=== PATIENT | male | born 1950 | race Caucasian/White ===

== ENCOUNTER 2025-02-19 07:13 | Day surgery (SDC) | payer OTHER, SELFPAY ==
--- OUTSIDE RECORDS SUMMARY | 2025-01-10 09:26 | XMS_ITS | Encounter Summary ---
Author Name [facility] [place] [facility] [place] Address [address] [place] [address] Care Team Providers Care Bowling Alley Operator Name Role Phone CM HECTOR Primary Care Provide r Unavailable Insurance Providers: All historical and current Section Date Range: From patient's date of to the date document was created. This section includes the names of all active insurance providers for the patient. Insurance Provider Type of Coverage Plan Name Start of Policy Coverage End of Policy Coverage Group Number Member ID Insurance Provider's Telephone Number Policy Lozano's Name Patient's Relationship to Policy Lozano [employer] [facility] (R) MEDICARE ADVANTAGE [facility] ([facility]) Jul 31, 2021 [id number] [phone] TONYSanta KING PATIENT CAREMARK PRESCRIPT ION [id number] Jul 31, 2023 [id number] [facility] [phone] TONY,Olimpia BAINSETTE SPOUSE CAREMARK PRESCRIPT ION GEHA Jul 31, 2023 [id number] [phone] Olimpia JIMENEZ NNETTE SPOUSE CAREMARK PRESCRIPT ION GEHA Jul 31, 2017 [id number] Olimpia JIMENEZETTE SPOUSE CAREMARK PRESCRIPT ION GEHA Jun 30, 2017 [id number] Olimpia JIMENEZ NNETTE SPOUSE CAREMARK PRESCRIPT ION GEHA STAND MINOR PLAN Jul 31, 2012 [id number] TONY,A NNETTE SPOUSE CAREMARK PRESCRIPT ION GEHA Jul 31, 2012 [id number] Tony,A nnette SPOUSE GEHA (SECONDARY ) PREFERRED PROVIDER ORGANIZAT ION (PPO) RAFIA AL EMPLO DUNHAM Jul 31, 2017 [id number] [phone] TONY,A NNETTE SPOUSE GEHA FEHB PREFERRED PROVIDER ORGANIZAT ION (PPO) Rafia al Emplo dunham Hea Jul 31, 2017 [id number] TONY,A NNETTE SPOUSE GEHA FEHB PREFERRED PROVIDER ORGANIZAT ION (PPO) RAFIA AL GOV Jul 31, 2012 [id number] [phone] TONY,A NNETTE SPOUSE GEHA FEHB PREFERRED PROVIDER ORGANIZAT ION (PPO) GEHA CONNE CTION DENT Jul 31, 2012 [id number] TONY,A NNETTE SPOUSE GEHA-BE[facility]AV I[facility]AL HE[facility] MENTAL HEALTH FEHB/ PSHB Jul 31, 2024 [id number] [phone] TONY,A NNETTE SPOUSE GEHA-BEHAV I[facility] HE[facility] MENTAL HEALTH GEHA Jul 31, 2023 [id number] TONY,A NNETTE SPOUSE GEHA-BEHAV I[facility]AL HE[facility] MENTAL HEALTH STAND MINOR OPTIO N Jul 31, 2023 [id number] TONY,A NNETTE SPOUSE GEHA-[facility] PREFERRED PROVIDER ORGANIZAT ION (PPO) FEHB/ PSHB Jul 31, 2024 [id number] [phone] TONY,A NNETTE SPOUSE GEHA-[facility] PREFERRED PROVIDER ORGANIZAT ION (PPO) RAFIA AL EMPLO DUNHAM HEA Jul 31, 2023 [id number] [facility] [phone] TONY,A NNETTE SPOUSE GEHA-[facility] PREFERRED PROVIDER ORGANIZAT ION (PPO) RAFIA AL EMPLO DUNHAM HEA Jul 31, 2023 [id number] [phone] TONY,Olimpia MATHEWS SPOUSE [facility] PREFERRED PROVIDER ORGANIZAT ION (PPO) PAPO GAXIOLA OPTIO N Jul 31, 2023 [id number] TONY,Olimpia MATHEWS SPOUSE MEDICARE (WNR) MEDICARE () PART A Jun 30, 2012 PART A [id number] Santa JIMENEZ PATIENT MEDICARE (WNR) MEDICARE () PART B Jun 30, 2012 PART B [id number] [phone] Santa JIMENEZ PATIENT MEDICARE (WNR) MEDICARE () PART A Jun 30, 2012 PART A [id number] Santa JIMENEZ PATIENT MEDICARE (WNR) MEDICARE () PART B Jun 30, 2012 PART B [id number] Santa JIMENEZ PATIENT MEDICARE (WNR) MEDICARE () PART A Jun 30, 2012 PART A [id number] Santa JIMENEZ PATIENT MEDICARE (WNR) MEDICARE (M) PART B Jun 30, 2012 PART B [id number] [id number] Santa JIMENEZ PATIENT MEDICARE (WNR) MEDICARE () PART A Jun 30, 2012 PART A [id number] Santa JIMENEZ PATIENT MEDICARE (WNR) MEDICARE () PART B Jun 30, 2012 PART B [id number] Santa JIMENEZ PATIENT Selected Encounter This section includes the information on record at [place] for the Encounter. Date/Time Encounter Type Encounter Description Reason Provider Source Jul 09, 2024 02:30 PM OFFICE O/P EST MOD 30 MIN PRIMARY CARE/MEDICINE ICD-10-CM E11.9 Type 2 diabetes mellitus without complications CM [place] Encounter Template Text not used by [place] Assessments - Encounter Diagnoses This section includes the primary and secondary diagnoses documented for the Encounter. Date/Time Primary/Secondary Diagnosis Diagnosis Name Provider Source Jul 22, 2024 01:32 PM PRIMARY Type 2 diabetes mellitus without complications YAZMINBOB LAKISHACM Schmidt [facility] Jul 22, 2024 01:32 PM SECONDARY Benign prostatic hyperplasia without lower urinry tract symp YAZMINBOB LAKISHACM Schmidt [facility] Jul 22, 2024 01:32 PM SECONDARY Elevated prostate specific antigen [PSA] SYLEXIEGONZÁLEZ BANUELOSSHELLEYArelySUMAYAArelyLEBRON Schmidt [facility] Jul 22, 2024 01:32 PM SECONDARY Essential (primary) hypertension YAZMINDIANANitaMONICAGONZÁLEZ BANUELOSCM Schmidt [facility] Jul 22, 2024 01:32 PM SECONDARY Hyperlipidemia, unspecified SYMINANitaMONICAGONZÁLEZ BANUELOSCM Schmidt [facility] Jul 22, 2024 01:32 PM SECONDARY Mild cognitive impairment of uncertain or unknown etiology SYMINANitaMONICAGONZÁLEZ BANUELOSSHELLEYArelyJUANA Roxana [facility] Jul 22, 2024 01:32 PM SECONDARY Post-traumatic stress disorder, chronic JORDI BANUELOSSHELLEYArelySUMAYAArelyLEBRON Roxana [facility] Jul 22, 2024 01:32 PM SECONDARY Type 2 diabetes mellitus with diabetic neuropathy, unsp TSERINGMONICAGONZÁLEZ BANUELOSCM Schmidt [facility] Plan of Treatment: Future Appointments (+ 6 months) and Future Tests (+/- 45 days) The Plan of Treatment section includes future care activities for the patient [facility] [place] [facility] This section includes future appointments and future orders which are active, pending or scheduled. Future Appointments This section includes appointments that were scheduled to occur 6 months from the date of the Encounter, up to a maximum of 20 appointments. The data comes from all [place] treatment facilities. Appointment Date/Time Appointment Type Appointme nt Facility Name Aug 07, 2024 09:30 AM [facility] [place] [facility] Aug 08, 2024 11[facility]00 AM [facility] Aug 26, 2024 09:00 AM AMBULATORY - MEDICINE [facility] Sep 30, 2024 08:30 AM AM[place]UL[place]ICINE [place] [facility] [place] [facility] Nov 04, 2024 09:30 AM [facility] November 28, 2024 10:15 AM [facility] - NONE [facility] Dec 30, 2024 08:30 AM [facility] Active, Pending, and Scheduled Orders This section includes a listing of several types of active, pending, and scheduled orders, including clinic medications orders, diagnostic test orders, procedure orders and consult orders; where the start date of the order is 45 days before the date of the Encounter or 45 days after the date of theEncounter. The data comes from all [place] treatment facilities. Test Date/Time Test Type Test Details Facility Name Jul 13, 2024 10:00 PM Consult Order [facility]COLON[facility] SCREENING Cons Web Marketing Strategist's Choice [facility] Lab Results: +/- 30 days of the encounter This section includes the Chemistry and Hematology Lab Results on record with [place] for the patient. Radiology Reports and Pathology Reports are provided separately, in subsequent sections. Lab Results This section contains the Chemistry/Hematology Results that were resulted 30 days before or 30 daysafter the date of the Encounter. Date/Time Source Result Type Result - Unit Interpretation Reference Range Specimen Type Comment Jun 25, 2024 08:58 AM [facility] MICROALBUMIN CREATININE RATIO PANEL URINE Specimen Type: URINE No comment entered. Ordering Provider: CM STEWART Report Released Date/Time: November 30, 2023 12:27 PM Reporting Lab: [address] [address] Performing Lab: [address] [address] MICROALBUMIN/CREATININE RATIO 8.6 mg/g 0 -29.9 MICROALBUMIN,QUANTITATIVE 1.5 mg/dL RR U NAVAIL CREATININE URINE 174.21 mg/dL Jun 25, 2024 08:58 AM [facility] URINALYSIS URINE Specimen Type: U RINE Comment: If Glucose = >500 and Ketones are positive, please alert the Physician. Ordering Provider: CM HECTOR Report Released Date/Time: November 30, 2023 12:27 PM Reporting Lab: [address] [address] Performing Lab: [address] [address] UA COLOR Yellow Yellow UA APPEARANCE Clear Clear UA GLUCOSE Normal mg/dL Negative UA KETONES TRACE mg/dL Negative UA BLOOD NEGATIVE mg/dL Negative UA PROTEIN 10 mg/dL Negative UA NITRITE NEGATIVE mg/dL Negative UA BILIRUBIN NEGATIVE mg/dL Negative UA SPECIFIC GRAVITY 1.027 H 1.016-1.022 UA pH 6.5 5.0-9.0 UA UROBILINOGEN 2 mg/dL <2.0 UA LEUKOCYTE NEGATIVE Negative Jun 25, 2024 08:42 AM [facility] VITAMIN B-1 (THIAMINE)-(QU) PLASMA Spe cimen Type: PLASMA Comment: Vitamin supplementation within 24 hours prior to blood draw may affect the accuracy of the results. This test was developed and its analytical performance characteristics have been determined by [employer] [place], [place]. It has not been cleared or approved by the U.S. Food and Drug Administration. This assay has been validated pursuant to the CLIA regulations and is used for clinical purposes. Test Performed by [facility], [employer] [facility], [address] [place] [address] Donavon Pritchett M.D., Ph.D., Director of Laboratories , CLIA [id number] TEST PERFORMED AT: , Ordering Provider: CM HECTOR Report Released Date/Time: December 10, 2023 09:01 PM Reporting Lab: [address] [address] Performing Lab: [address] [address] VITAMIN B-1 (THIAMINE)-(QU) 37 nmol/L H 8- 30 Jun 25, 2024 08:42 AM [facility] PSA SERUM Sp ecimen Type: SERUM No comment entered. Ordering Provider: CM HECTOR Report Released Date/Time: November 30, 2023 12:27 PM Reporting Lab: [facility] [address] [address] Performing Lab: [address] [address] PSA 9.48 ng/mL H 0.00-4.00 Jun 25, 2024 08:42 AM [facility] VITAMIN D (25-OH) SERUM Specimen Type : SERUM No comment entered. Ordering Provider: CM HECTOR Report Released Date/Time: November 30, 2023 12:27 PM Reporting Lab: [address] [address] Performing Lab: [address] [address] VITAMIN D (25-OH) 57 ng/mL H 20-50 Jun 25, 2024 08:42 AM [facility] VITAMIN B12 SERUM Specimen Type: S NAHUM No comment entered. Ordering Provider: CM HECTOR Report Released Date/Time: November 30, 2023 12:27 PM Reporting Lab: [address] [address] Performing Lab: [address] [address] VITAMIN B12 632 pg/mL 200-900 Jun 25, 2024 08:42 AM [facility] MAGNESIUM SERUM Specimen Type: S NAHUM No comment entered. Ordering Provider: CM HECTOR Report Released Date/Time: November 30, 2023 12:27 PM Reporting Lab: [address] [address] Performing Lab: [address] [address] MAGNESIUM 1.9 mg/dL 1.6-2.6 Jun 25, 2024 08:42 AM [facility] LIPID PANEL FASTING SERUM Specimen Ty pe: SERUM No comment entered. Ordering Provider: CM HECTOR Report Released Date/Time: November 30, 2023 12:27 PM Reporting Lab: [address] [address] Performing Lab: [address] [address] CHOLESTEROL 121 mg/dL TRIGLYCERIDE 133 mg/dL 0-150 LDL calculated 61 mg/dL 0-129 CHOL/HDL 3.7 HDL CHOLESTEROL 33 mg/dL L 40-60 Jun 25, 2024 08:42 AM [facility] BASIC METABOLIC PANEL (fasting) SERUM Specimen Type: SERUM No comment entered. Ordering Provider: CM HECTOR Report Released Date/Time: November 30, 2023 12:27 PM Reporting Lab: [address] [address] Performing Lab: [address] [address] UREA NITROGEN 21 mg/dL 7-25 GLUCOSE 126 mg/dL H 65-100 SODIUM 139 mmol/L 135-145 POTASSIUM 3.7 mmol/L 3.5-5.0 CHLORIDE 101 mmol/L 100-110 CO2 25 meq/L 20-30 CREATININE, Serum 1.07 mg/dL 0.50-1.40 eGFR(CKD-EPI 2020) 72 mL/min >60 Jun 25, 2024 08:42 AM [facility] LIVER FUNCTION SERUM Specimen Type: S NAHUM No comment entered. Ordering Provider: CM HECTOR Report Released Date/Time: November 30, 2023 12:27 PM Reporting Lab: [address] [address] Performing Lab: [address] [address] PROTEIN,TOTAL 7.1 g/dL 6.0-8.3 ALBUMIN 4.0 g/dL 3.5-5.0 ALKALINE PHOSPHATASE 47 U/L 40-150 AST 19 U/L 5-34 ALT 22 U/L BILIRUBIN, TOTAL 0.8 mg/dL 0.2-1.2 Jun 25, 2024 08:42 AM [facility] HEMOGLOBIN A1C PANEL BLOOD Specimen T ype: BLOOD Comment: Values obtained from A1C measurements can vary. For atypical A1C assays, a reported value of 7.0 could actually be between 6.72 and 7.28 if measured by a reference method. A reported value of 9.0 could actually be between 8.73 and 9.27. Ref: http://www.ngsp.org/CAPdata.asp Ordering Provider: CM HECTOR Report Released Date/Time: November 30, 2023 12:27 PM Reporting Lab: [facility] [address] [address] Performing Lab: [facility] [address] [address] HEMOGLOBIN A1C 5.7 H 4.0-5.6 Jun 25, 2024 08:42 AM [facility] TSH SERUM Sp ecimen Type: SERUM No comment entered. Ordering Provider: CM HECTOR Report Released Date/Time: November 30, 2023 12:27 PM Reporting Lab: [facility] [address] [address] Performing Lab: [facility] [address] [address] TSH 2.20 u[IU]/mL 0.35-5.00 Jun 25, 2024 08:42 AM [facility] CBC AND DIFF (AUTO) BLOOD Specimen Ty pe: BLOOD No comment entered. Ordering Provider: CM HECTOR Report Released Date/Time: November 30, 2023 12:27 PM Reporting Lab: [facility] [address] [address] Performing Lab: [facility] [address] [address] WBC 8.06 10*3/uL 4.50-11.00 RBC 5.08 10*6/uL 4.23-5.66 HGB 14.8 g/dL 12.8-17 HCT 43.6 39.2-50.4 MCV 85.8 fL 82-99 MCHC 33.9 g/dL 30.8-35.1 PLT 269 10*3/uL 140-360 RDW-CV 13.5 12.0-16.0 MONO, ABS 0.67 10*3/uL 0.30-1.10 MCH 29.1 pg 26.2-32.6 NEUT % 50.8 43.7-75.8 LYMPH % 35.2 14.0-42.3 MONO % 8.3 5.1-13.7 EOS % 4.8 0.4-6.8 BASO % 0.5 0.1-2.0 NEUT, ABS 4.09 10*3/uL 2.20-7.60 LYMPH, ABS 2.84 10*3/uL 1.00-3.20 EOS, ABS 0.39 10*3/uL 0.03-0.44 BASO, ABS 0.04 10*3/uL 0.01-0.13 IMMATURE GRAN % 0.4 0.0-0.7 IMMATURE GRAN, ABS 0.03 10*3/uL 0.00-0.0 6 NRBC % 0.0 0.0-0.0 NRBC, ABS 0.00 10*3/uL 0.00-0.00 Vital Signs: All taken on the encounter date This section contains inpatient and outpatient Vital Signs collected on the date of the Encounter. Date/Time Temperature Pulse Blood Pressure Respiratory Rate SP02 Pain Height Weight Body Mass Index Source Jul 09, 2024 03:03 PM 98.6 74 109/68 96 169.8 27 [facility] Social History: Smoking Status (Most current) and Tobacco Use (All prior to encounter date) This section includes the most current, and the historical, smoking and tobacco- related health factors from the [place] facility where the Encounter took place. Current Smoking Status This section includes the most current smoking, or tobacco-related health factor, from the [place] facility where the Encounter took place. Date/Time Current Smoking Status Comment Paty rizvi Jul 07, 2017 09:50 AM QUIT TOBACCO USE > 7 YEARS AGO [facility] Tobacco Use History This section includes a history of the smoking, or tobacco-related health factors, that were collected on or before the date of the Encounter. The data comes from the [place] facility where the Encounter took place. Date/Time Smoking Status/Tobacco Use Comment F acility Mar 02, 2004 01:04 PM HISTORY OF SMOKING ocassional cigars-5 years ago [facility] Jan 10, 2003 01:17 PM LIFETIME NON-SMOKER [facility] December 06, 2001 02:22 PM LIFETIME NON-SMOKER [facility] Advance Directives: All historical and current Section Date Range: From patient's date of to the date document was created. This section includes ALL of a patient's completed or amended [place] Advance and Rescinded Directives. The entries below indicate that a directive exists for the patient, but an actual copy is not included with this document. The data comes from all [place] facilities. Date Advance Directives Provider Source May 21, 2007 ADVANCE DIRECTIVE JOHNNY MESSINA Encounter Notes: All associated encounter notes This section contains the clinical notes associated to the Encounter. Date/Time Encounter Note(s) Provider Source Jul 09, 2024 02:30 PM PHYSICIAN NOTE: LOCAL TITLE: MD NOTE STANDARD TITLE: PHYSICIAN NOTE DATE OF NOTE: JUL 09, 2024@14:30 ENTRY DATE: JUL 08, 2024@23:59:27 AUTHOR: El HECTOR EXP COSIGNER: URGENCY: STATUS: COMPLETED NOTE Has ADDENDA Pt is 74 y/o M with PMH of HTN, HL, DM2, BPH, elevated PSA, OA, PTSD, Mild neurocognitive disorder last/Initial visit 11/2023 Other providers: -podiatry -eye [facility] [place] -CPP doing well walking daily at least one mile #DM2 well controlled lost 15 lbs since restarted ozempic compliant with meds since last visit currently taking inslin 14 units hs 1% readings <80, pt takes glucose tablets for low readings >90 % last 90 days glucose in range BLOOD Nov Nov 07 Apr 26Aug 16 Reference 2023 2023 2022 2022 HGB-A1c 5.7 H 9.2 H 5.3 5.5 % 4 - 5.6 #CAD/HTN/HL compliant with medications denies CP/SOB/BACK/palpitations/dizzine ss /claudication denies h/o HI, CVA PAST MEDICAL HISTORY: --overweight --HTN --HL --DM2 --oral lesion: ent felt lesion was a papilloma --Multiple nodules of lung --H/O: asbestos exposure --BPH --elevated PSA Prostate bx '11 negative --OA --Pain in joint involving shoulder region --Mild cognitive disorder --PTSD PAST SURGICAL HISTORY: --Orbit Surgery Lasik? 2004 left --nasal surgery while in service- deviated septum ALLERGIES: Patient has answered NKA MEDICATIONS: -Non-VA ASPIRIN 81MG -Simvastatin 10 mg -LISINOPRIL 20MG TAB -METOPROLOL SUCCINATE 50MG DAILY -AMLODIPINE 10MG -HYDROCHLOROTHIAZIDE 25MG -GABAPENTIN 600MG BID -TRAZODONE HCL 150MG -METFORMIN HCL 1000MG BID -INSULIN,GLARGINE-YFGN 14 UNITS -SEMAGLUTIDE 2MG ONCE A WEEK Non-VA CINNAMON CAP/TAB DAILY ACTIVE Non-VA COENZYME Q10 CAP/TAB DAILY ACTIVE Non-VA FISH OIL 500MG DHA/EPA CAP,ORAL BY MOUTH EVERY DAY ACTIVE Non-VA GLUCOSAMINE CAP/TAB /CHONDROITIN 1TAB TWICE DAILY ACTIVE Non-VA GUAIFENESIN 600MG SA TAB 600MG BY MOUTH TWICE DAILY ACTIVE Non-VA MAGNESIUM OXIDE TAB BY MOUTH ACTIVE Non-VA MULTIVITAMIN/MINERALS CAP/TAB 1 TABLET BY MOUTH ACTIVE DAILY FAMILY HISTORY: --DM: brother --Cancer:Father with colon cancer, brother prostate cancer Dx at 79 --HI: no --CVA:no SOCIAL HISTORY: --Occupation: retired --Cohabitation: , lives with his still driving --Children: 2 children, one son works in [employer] --Diet: mostly frozen dinners (healthy choice), likes fries, --Exercise: walking every morning 1-3 miles --Caffeine: 1c am --EtOH: denies --Tob: quit 2013, never every day smoker --MJ: denies --Illicits:denies --Sexual activity: --Eye: UTD 12/2022 [facility] --Dental: UTD --Hospitalizations:none recently ROS: Constitutional: no fever/no chills, no ns Eyes: no decreased vision/blurry vision Ears/Nose/Throat: no hearing change Respiratory: no cough/wheezing/SOB Cardiovascular: no CP /palpitations Gastrointestinal: no abdominal pain/bloody/black stools :no dysuria/hematuria/trouble voiding, some hesitancy,dribling, nocutria 0 MSK: mild shoulder pain good ROM Neuro: no dizziness/H/A Skin: no pruritus/rash PHYSICAL EXAM: Vital Signs: Blood Pressure: 109/68 (07/09/2024 15:03) 137/79 (11/30/2023 11:24) Pulse: 74 (07/09/2024 15:03) Respiration: 18 (05/01/2023 13:31) Temperature: 98.6 F [37.0 C] (07/09/2024 15:03) Patient Weight: BMI 26 169.8 lb [77.02 kg] (07/09/2024 15:03) 185.6 lb [84.19 kg] (11/30/2023 11:24) Gen: pleasant, engaged, NAD neck: supple, no LAD Chest/CV: RRR Lungs: CTA B/L Abdomen: BS+, Soft, NT, ND Extremities: wwp, no edema shoulders FROM LABORATORY:05/2024 WBC: 8.06 HGB: 14.8 HCT: 43.6 MCV: 85.8 PLT: 269 VIT B1 (QU): 37 H VIT. B12 (WROX): 632 VITAMIN D TOTAL: 57 H MAGNESIUM: 1.9 TSH (Access): 2.20 BLOOD Nov Nov 07 Apr 26Aug 16 Reference 2023 2023 2022 2022 HGB-A1c 5.7 H 9.2 H 5.3 5.5 % 4 - 5.6 GLUCOSE: 126 H UREA NITROGEN: 21 CREATININE-EGFR: 1.07 eGFR CKD-EPI 2020: 72 SODIUM: 139 POTASSIUM: 3.7 CHLORIDE: 101 CO2: 25 PROTEIN,TOTAL: 7.1 ALBUMIN: 4.0 ALKALINE PHOSPHATASE: 47 BILIRUBIN,TOT.: 0.8 SGOT: 19 SGPT: 22 CHOLESTEROL: 121 TRIGLYCERIDE: 133 LDL CHOL: 61 CHOL/HDL RATIO: 3.7 HDL: 33 L MICROALB/CR RATIO: 8.6 MICROALBUMIN URINE: 1.5 CREATININE URINE: 174.21 U/A negative SERUM Jun 25 December 05 Nov 05 Feb 25 Reference 2023 2016 2015 2014 PSA 9.48 H 6.75 H 6.01 H 3.77 ng/mL 0 - 4 IMAGING: #MRI brain 10/2023 No acute subacute infarct, hemorrhage, midline shift or other acute intracranial abnormality Mild to moderate nonspecific white matter T2 hyperintensities probably sequela of chronic microangiopathy Mild global cerebral volume loss #LDCT 2016 f/u low dose ct scan for h/o asbestos exposure Clinical History Stable pulmonary nodules as above, measuring up to 6 mm in 2014 These nodules do not require additional imaging followup. ASSESSMENT/PLAN: Pt is 74 y/o M with PMH of HTN, HL, DM2, BPH, elevated PSA, OA, PTSD, Mild neurocognitive disorder #DM2: well controlled A1c 5.7 (05/2024) -f/w CPP -decrease lantus insulin to 12 units daily -ozempic 2mg weekly -c/w metformin 1000mg bid eye: 12/2023 no retinopathy foot: UTD #neuropathy: -c/w gabapentin #HTN: borderline hypotensive today,lost 15 lb since on GLP1RA, goal blood pressure less than 130/80 -LISINOPRIL 20MG -METOPROLOL SUCCINATE 50MG DAILY -AMLODIPINE 10MG -decrease HYDROCHLOROTHIAZIDE 25MG to 12.5mg and monitor BP at home #HL: Well-controlled, LDL 61 (2023) -c/w statin and aspirin # BPH with elevated PSA 9.48 (05/2024) -pt's brother recently dx with prostate cancer pt followed by urology [facility]. last time seen in 2020 pt had 2 negative bx negative in the past 2012: Negative biopsy with PSA @ 8.19 2010: Negative prostate biopsy with PSA @ 4.66 -referral to [facility] #PTSD: -f/w -trazadone 150mg hs #Mild neurocognitive disorder per Neuropsychological evaluation 08/2023 MRI brain 10/2023 evidence of chronic microangiopathy and Mild global cerebral volume loss 2023 TSH, B12, B1, vit D wnl Healthcare maintenance: --Lipids: LDL 61 (05/2024) --Diabetes: A1c 5.7 (05/2024) --Colon CA (45-75): due 12/2024 Family History of Malignant Neoplasm of Gastrointestinal Tract Father with colon cancer -Colonoscopy 2003 [facility] no polyps rec repeat 2008. dr lópez -Colonoscopy 05/13 1 tubular adenoma colonoscopy 12/2019 -small rectal hyperplastic polyp, diverticulosis and internal hemorrhoids-recommended to repeat colonoscopy in December 2024 --Lung CA: 2017 no f/u needed --PSA: PSA 9.48 (05/2024) --AAA (smoker/65): 2013 no AAA --Influenza (yrly): 2023 --COVID: 2020 x3 --PCV13: 2015 --PCV23: 2016 --HZV (>60yrs, x1): 2014 --RZV (>50yrs, x2): 2017 --TDAP/TD: --Hep C screen: 2009 negative --HIV screen: --DEXA: --Advanced Directives: Address at next visit: Return to clinic to see me in _6__ months, sooner PRN. Virtual ( ), F2F ( x ) ( )non fasting labs ordered prior to f/u ( x)fasting labs ordered prior to f/u ( )no labs needed ( )request labs from outside provider (x )request records from outside providers --please place [facility] urology referral for elevated PSA --Please place community care referral to GI-recommended follow-up colonoscopy- due December 2024, family history of colon cancer, father, and personal history of tubular adenoma Medication Reconciliation: Outpatient: Has the patient been taking medications as documented in the EMLR? YES: The patient has been taking medications as documented in the EMLR. Essential Medication List for Review used to complete this medication reconciliation. INCLUDED IN THIS LIST: Alphabetical list of active outpatient prescriptions dispensed from this [facility] (local) and dispensed from another [place] or [facility] facility (remote) as well as inpatient orders (local, pending and active), local clinic medications, locally documented non-VA medications, and local prescriptions that have or been discontinued in the past 90 days. - All changes in medications, including all non-VA/Herbal/OTC medications were entered into CPRS. - If there were any medications the patient should no longer take, they were discontinued. - The patient/caregiver was instructed to update this list, discard old lists, and take this list to the next appointment, whether with a [facility] or non-[facility] provider. /christel/ CM HECTOR MD PHYSICIAN Signed: 07/09/2024 22:21 Receipt Acknowledged By: 07/13/2024 21:19 /christel/ ALEXA ALBA RN REGISTERED NURSE 07/13/2024 ADDENDUM STATUS: COMPLETED Consults placed as requested and held for PCP signature. /christel/ ALEXA ALBA RN REGISTERED NURSE Signed: 07/13/2024 21:18 08/12/2024 ADDENDUM STATUS: COMPLETED [facility] - urology note dated 08/08/2024 received, sent to [facility]. Plan: repeat PSA in 6 months, continue with observation /christel/ Reba Lopes RN Registered Nurse Signed: 08/12/2024 08:14 SHELLEY HECTOR CARAWAY Jul 05, 2024 10:43 AM ADMINISTRATIVE NOT E: LOCAL TITLE: ADMINISTRATIVE NOTE STANDARD TITLE: ADMINISTRATIVE NOTE DATE OF NOTE: JUL 05, 2024@10:43 ENTRY DATE: JUL 05, 2024@10:43:22 AUTHOR: LOLA HILTON EXP COSIGNER: URGENCY: STATUS: COMPLETED [facility] [address] [place] [address] [phone] * [phone] * TANIA JIMENEZ [address], [place] [address] Date: JUL 05, 2024 re: This is a reminder of your upcoming PCP appt with CM HECTOR. Appointment Date: Jun@14:30 Appointment Type: In-person visit Fasting blood work NON fasting blood work LEFT MESSAGE ON VOICEMAIL TO CONFIRM APPT Sincerely, Office Staff for: CM HECTOR Primary Care Provider [facility] [address] [place] [id number] T [phone] F [phone] Upcoming Appointments: 07/09/2024 14:30 CWM/SO/PACT 5 08/07/2024 09:30 CWM/SO/PHARM/PACT 2 08/08/2024 10:00 CWM/NO/VVC/MHC/SEVERO 08/26/2024 09:00 CWM/SO/PODIATRY/ROSS 01/27/2025 09:30 NHM/OPTOMETRY/BORASKI APPOINTMENT ABBREVIATION FREY (SPOPC OR SO = [address]) (GOPC OR GO = [address]) (NHM or NO = [facility]) (VVC - Video Call) (Tel-X Telephone Visit) ( - Telehealth) /es/ LOLA MANNING Signed: 07/05/2024 10:43 LOLA HILTON CARAWAY
[2025-02-17 14:56] VITALS: BMI 26.3
--- NOTE | 2025-02-18 13:32 | HO.ANESPROP2 ---
Documented by User: Gela Bardales NP 02/18/25 14:38 HPI - Anesthesia Eval Consult details Narrative: 75 yr old male for colonoscopy Type 2 Diabetes: on insulin, metformin, GLP-1 On Gabapentin Anesthesia Pre-Procedure Meds Is the patient on any of the following meds?: GLP1/DPP4 PMFSH Past Medical History Medical History Constipation HTN (hypertension) Diabetes Surgical History Surgical History (Updated 02/17/25 @ 14:54 by Dana Mcrae RN) Hx of nasal septoplasty Hx of colonoscopy (~2013) Social History Social History Are you a primary care support representative to a significant other at home: No Do you presently have visiting nurse or other home services: No Patient Tobacco Use Status: Former Tobacco user Use of substances other than those prescribed or required for medical reasons: No Have you been hit, kicked, punched, or otherwise hurt by someone within the past year? If so, by whom?: No Are you DNR?: No Advance Directives: No Advance Directives Information Provided: Yes Poor oral hygiene: No Meds Allergies Allergy/AdvReac Type Severity Reaction Status Date / Time No Known Allergies Allergy Verified 02/19/25 06:12 Home Medications ?Medication ?Instructions ?Recorded ?Confirmed ?Last Taken ?Type amlodipine 5 mg-benazepril 10 mg 1 cap PO DAILY 02/17/25 02/17/25 Unknown History capsule aspirin 81 mg tablet 81 mg PO DAILY 02/17/25 02/17/25 Unknown History gabapentin 300 mg capsule 300 mg PO BID 02/17/25 02/17/25 Unknown History glucose 4 gram chewable tablet 4 g PO Q15M PRN Hypoglycemia 02/17/25 02/17/25 Unknown History hydrochlorothiazide 25 mg tablet 25 mg PO DAILY 02/17/25 02/17/25 Unknown History insulin glargine 100 4.5 unit subcut QPM 02/17/25 02/17/25 Unknown History unit-lixisenatide 33 mcg/mL subcutaneous pen lisinopril 20 mg tablet 20 mg PO BID 02/17/25 02/17/25 Unknown History metformin 1,000 mg tablet 1,000 mg PO BID 02/17/25 02/17/25 Unknown History metoprolol succinate 50 mg capsule 50 mg PO DAILY 02/17/25 02/17/25 Unknown History sprinkle, ext. release 24 hr multivitamin 1 tab PO DAILY 02/17/25 02/17/25 Unknown History omega 7-hts-kch-fish oil 1,200 mg cap PO 02/17/25 02/12/25 History (144 mg-216 mg) capsule (Fish Oil) semaglutide 2 mg/dose (8 mg/3 mL) 2 mg subcut QWEEK 02/17/25 02/19/25 02/18/25 History subcutaneous pen injector (Ozempic) simvastatin 10 mg tablet 10 mg PO BEDTIME 02/17/25 02/17/25 Unknown History trazodone 100 mg tablet 100 mg PO BEDTIME PRN Insomnia 02/17/25 02/17/25 Unknown History Exam Height,Weight and Vital Signs: Height 5 ft 7 in Weight 76.204 kg Documented by User: Mekhi Lehman MD 02/19/25 08:03 HPI - Anesthesia Eval Anesthesia Pre-Procedure Meds If yes to any meds - educate patient: Pt education - increased risk of aspiration and/or euvolemic DKA [facility] Past Medical History Medical History Constipation HTN (hypertension) Diabetes Cognitive capacity: normal Functional capacity: independent ambulation Family History Family history of problems with anesthesia: No Surgical History Surgical History (Updated 02/17/25 @ 14:54 by Dana cMrae RN) Hx of nasal septoplasty Hx of colonoscopy (~2013) History of Problems with Anesthesia: No Social History Social History Are you a primary care support representative to a significant other at home: No Do you presently have visiting nurse or other home services: No Patient Tobacco Use Status: Former Tobacco user Use of substances other than those prescribed or required for medical reasons: No Have you been hit, kicked, punched, or otherwise hurt by someone within the past year? If so, by whom?: No Are you DNR?: No Advance Directives: No Advance Directives Information Provided: Yes Poor oral hygiene: No Meds Allergies Allergy/AdvReac Type Severity Reaction Status Date / Time No Known Allergies Allergy Verified 02/19/25 06:12 Home Medications ?Medication ?Instructions ?Recorded ?Confirmed ?Last Taken ?Type amlodipine 5 mg-benazepril 10 mg 1 cap PO DAILY 02/17/25 02/17/25 Unknown History capsule aspirin 81 mg tablet 81 mg PO DAILY 02/17/25 02/17/25 Unknown History gabapentin 300 mg capsule 300 mg PO BID 02/17/25 02/17/25 Unknown History glucose 4 gram chewable tablet 4 g PO Q15M PRN Hypoglycemia 02/17/25 02/17/25 Unknown History hydrochlorothiazide 25 mg tablet 25 mg PO DAILY 02/17/25 02/17/25 Unknown History insulin glargine 100 4.5 unit subcut QPM 02/17/25 02/17/25 Unknown History unit-lixisenatide 33 mcg/mL subcutaneous pen lisinopril 20 mg tablet 20 mg PO BID 02/17/25 02/17/25 Unknown History metformin 1,000 mg tablet 1,000 mg PO BID 02/17/25 02/17/25 Unknown History metoprolol succinate 50 mg capsule 50 mg PO DAILY 02/17/25 02/17/25 Unknown History sprinkle, ext. release 24 hr multivitamin 1 tab PO DAILY 02/17/25 02/17/25 Unknown History omega 6-amd-nvy-fish oil 1,200 mg cap PO 02/17/25 02/12/25 History (144 mg-216 mg) capsule (Fish Oil) semaglutide 2 mg/dose (8 mg/3 mL) 2 mg subcut QWEEK 02/17/25 02/19/25 02/18/25 History subcutaneous pen injector (Ozempic) simvastatin 10 mg tablet 10 mg PO BEDTIME 02/17/25 02/17/25 Unknown History trazodone 100 mg tablet 100 mg PO BEDTIME PRN Insomnia 02/17/25 02/17/25 Unknown History Exam Exam Date and Time: 02/19/2026 Airway Mallampati Class: II TM Dist: >3cm Neck ROM: Full Denture: Upper Partial: Lower Heart: rrr Lungs: cta Assessment and Plan Final Anesthetic Review Family History of Problems with Anesthesia: No History of Problems with Anesthesia: No NPO: Yes ASA Class: II Final Preanesthetic Review: No Changes in Pt Med Stat and Consent Obtained/Reviewed Patient Risk: Low Procedure Risk: Low Anesthetic Plan Anesthetic Plan: MAC: Disposition: Standard PACU
[2025-02-19 07:51] VITALS: BMI 25.4
[2025-02-19 08:00] VITALS: BP 131/72; PULSE 82; RESP 18; TEMP 35.9; O2SAT 97
[2025-02-19] MEDS: Lactated Ringers 1,000 ML 100 ML IVCONT (08:13)
--- NOTE | 2025-02-19 08:15 | HO.ANESPROP2 ---
[facility] Past Medical History Medical History Constipation HTN (hypertension) Diabetes Functional capacity: independent ambulation Family History Family history of problems with anesthesia: No Surgical History Surgical History (Updated 02/17/25 @ 14:54 by Dana Mcrae RN) Hx of nasal septoplasty Hx of colonoscopy (~2013) History of Problems with Anesthesia: No Social History Social History Are you a primary critical care nurse specialist to a significant other at home: No Do you presently have visiting nurse or other home services: No Patient Tobacco Use Status: Former Tobacco user Use of substances other than those prescribed or required for medical reasons: No Have you been hit, kicked, punched, or otherwise hurt by someone within the past year? If so, by whom?: No Are you DNR?: No Advance Directives: No Advance Directives Information Provided: Yes Poor oral hygiene: No Meds Allergies Allergy/AdvReac Type Severity Reaction Status Date / Time No Known Allergies Allergy Verified 02/19/25 06:12 Active Medications: Current Medications Lactated Ringer's (Lr) 1,000 mls @ 100 mls/hr IVCONT .Q10H TATO Last Admin: 02/19/25 08:13 Dose: 100 mls/hr Sodium Biphosphate/Sodium Phosphate (Sodium Phosphate,Becker-Dibasic 133 Ml Enema) 133 ml CA ONCE PRN PRN Reason: Poor Colonoscopy Prep Results Home Medications ?Medication ?Instructions ?Recorded ?Confirmed ?Last Taken ?Type amlodipine 5 mg-benazepril 10 mg 1 cap PO DAILY 02/17/25 02/17/25 Unknown History capsule aspirin 81 mg tablet 81 mg PO DAILY 02/17/25 02/17/25 Unknown History gabapentin 300 mg capsule 300 mg PO BID 02/17/25 02/17/25 Unknown History glucose 4 gram chewable tablet 4 g PO Q15M PRN Hypoglycemia 02/17/25 02/17/25 Unknown History hydrochlorothiazide 25 mg tablet 25 mg PO DAILY 02/17/25 02/17/25 Unknown History insulin glargine 100 4.5 unit subcut QPM 02/17/25 02/17/25 Unknown History unit-lixisenatide 33 mcg/mL subcutaneous pen lisinopril 20 mg tablet 20 mg PO BID 02/17/25 02/17/25 Unknown History metformin 1,000 mg tablet 1,000 mg PO BID 02/17/25 02/17/25 Unknown History metoprolol succinate 50 mg capsule 50 mg PO DAILY 02/17/25 02/17/25 Unknown History sprinkle, ext. release 24 hr multivitamin 1 tab PO DAILY 02/17/25 02/17/25 Unknown History omega 5-oef-jpv-fish oil 1,200 mg cap PO 02/17/25 02/12/25 History (144 mg-216 mg) capsule (Fish Oil) semaglutide 2 mg/dose (8 mg/3 mL) 2 mg subcut QWEEK 02/17/25 02/19/25 02/18/25 History subcutaneous pen injector (Ozempic) simvastatin 10 mg tablet 10 mg PO BEDTIME 02/17/25 02/17/25 Unknown History trazodone 100 mg tablet 100 mg PO BEDTIME PRN Insomnia 02/17/25 02/17/25 Unknown History Exam Height,Weight and Vital Signs: Height 5 ft 7 in Weight 73.595 kg Last Vital Signs Temp 96.6 F L 02/19/25 08:00 Pulse 82 02/19/25 08:00 Resp 18 02/19/25 08:00 BP 131/72 02/19/25 08:00 Pulse Ox 97 02/19/25 08:00 O2 Del Method Room Air 02/19/25 08:00 Assessment and Plan Final Anesthetic Review Family History of Problems with Anesthesia: No History of Problems with Anesthesia: No Final Preanesthetic Review: No Changes in Pt Med Stat, Meds/Allgs Chart Reviewed and Consent Obtained/Reviewed Patient Risk: Low Procedure Risk: Low Anesthetic Plan Anesthetic Plan: MAC: Disposition: Standard PACU, Extended PACU and Inp. Admit - Standard Bed
[2025-02-19 08:21] LABS: Glucose, Whole Blood 124 mg/dL (60-115)
[2025-02-19 09:47] VITALS: BP 99/59; PULSE 78; RESP 20; TEMP 36.2; O2SAT 93
--- NOTE | 2025-02-19 09:50 | PM.OP ---
Brief Operative Note Date of Service: 02/19/25 Pre-op diagnosis: Screening Post-op diagnosis: other (Colon polyp) Procedure: Colonoscopy to the cecum with bx/removal of polyp, and biopsies Surgeon: Maxim Peña MD Anesthesia: MAC Was an Project Management Specialist used for this Procedure?: No Estimated blood loss (mL): 2.0 Pathology: other (A. Bx around appendiceal orifice B. Polyp at 60cm) Condition: stable Disposition: PACU
[2025-02-19 10:00] VITALS: BP 114/68; PULSE 66; RESP 20; O2SAT 94
[2025-02-19 10:15] VITALS: BP 134/73; PULSE 65; RESP 16; TEMP 36.1; O2SAT 94
--- NOTE | 2025-02-19 10:54 | OP_ITS ---
DATE OF SERVICE: 02/19/2025 SURGEON: Maxim Peña MD INDICATIONS: The patient presents for evaluation of colorectal cancer screening, personal history of tubular adenoma of the colon, and family history of colon cancer. Full consent has been obtained from him for this, including risks of bleeding and perforation. PREOPERATIVE DIAGNOSIS: POSTOPERATIVE DIAGNOSIS: PROCEDURE PERFORMED: Colonoscopy to the cecum with biopsies, and biopsy and removal of polyp. ESTIMATED BLOOD LOSS: COMPLICATIONS: ANESTHESIA: Medication used, monitored anesthesia care. ASSISTANTS: SPECIMENS: PREOPERATIVE DIAGNOSES: Colorectal cancer screening, personal history of tubular adenomas, and family history of colon cancer. POSTOPERATIVE DIAGNOSES: Colorectal cancer screening, personal history of tubular adenomas, and family history of colon cancer, colon polyp, rule out polyp tissue at appendiceal orifice, diverticulosis, and internal hemorrhoids. DESCRIPTION OF PROCEDURE: The patient was placed in the left lateral decubitus position. The digital rectal exam revealed no abnormalities. The [employer] video pediatric colonoscope was entered into the rectum and advanced easily to the cecum. Once in the cecum I identified normal-appearing cecal pouch other than the mucosa right around the appendiceal orifice that appeared somewhat polypoid in nature, i.e. serrated polyp tissue. Therefore multiple biopsies were obtained from the tissue, which seemed to be going into the appendiceal orifice. The remainder of the cecum appeared normal. The terminal ileum was cannulated and appeared normal. Scope was withdrawn back in the colon. The scope was slowly withdrawn assessing all mucosal surfaces carefully. Preparation was excellent. I did not visualize any sign of colitis nor angiodysplasia. There was a mild amount of sigmoid diverticulosis. At 60 cm was an approximately 4 or 5 mm polyp, which was biopsied and completely removed in piecemeal fashion with a cold biopsy forceps. I did not visualize any other polyps. In the rectum, scope was retroflexed visualizing internal hemorrhoids but no other pathology. The rectal mucosa appeared normal. The scope was straightened and withdrawn from the patient. He tolerated the procedure well and was returned to the recovery area in stable condition. IMPRESSION: 1. Colon polyp 2. Diverticulosis. 3. Internal hemorrhoids. 4. R/O polyp tissue at appendiceal orifice PLAN: The results of the biopsies will be checked. If the tissue around the appendiceal orifice is normal mucosa, then I do not think he would need any further colonoscopies going forward. If the tissue around the appendiceal orifice is serrated polyp tissue or adenomatous, then I think he might need surgical consultation as I do not think it can be removed endoscopically given its appearance and location. He was advised not to use any aspirin or NSAIDs for 1 week. MD KAREN Robledo/JORDI / [id number] MTDD
== END 2025-02-19 10:40 | disposition home or self-care (01) ==
PROVIDERS: PCP Internal Medicine; Visit Provider Internal Medicine
PROC: 0DJD8ZZ Inspection of Lower Intestinal Tract, Via Natural or Artificial Opening Endoscopic (ICD-10-PCS; CPT 45378; principal; 2025-02-19 08:30)
DX: Z12.11 Encounter for screening for malignant neoplasm of colon (principal); Z86.0101 Personal history of adenomatous and serrated colon polyps; Z80.0 Family history of malignant neoplasm of digestive organs; D12.4 Benign neoplasm of descending colon; K57.30 Diverticulosis of large intestine without perforation or abscess without bleeding; K64.8 Other hemorrhoids; K59.00 Constipation, unspecified; I10 Essential (primary) hypertension; E78.5 Hyperlipidemia, unspecified; E11.9 Type 2 diabetes mellitus without complications; Z79.4 Long term (current) use of insulin; Z79.84 Long term (current) use of oral hypoglycemic drugs; Z79.85 Long-term (current) use of injectable non-insulin antidiabetic drugs; Z79.82 Long term (current) use of aspirin; Z79.899 Other long term (current) drug therapy; Z98.890 Other specified postprocedural states; Z87.891 Personal history of nicotine dependence
CPT/HCPCS: 45380; 82947; 88305; J2003; J2704